=== PATIENT | male | born 1970 | race African-American/Black ===

== ENCOUNTER 2019-10-24 10:00 | Emergency (ER) | payer SELFPAY ==
[~2019-10-24] VITALS: Ht 182.9 cm; Wt 73.0 kg
[2019-10-24] MEDS ORDERED: insulin (10:10)
[2019-10-24] MEDS ORDERED: METF-414 PO (10:10)
[2019-10-24] MEDS ORDERED: LIDOCAINE 1%/EPI 1:100,000 10 ML VIAL IJ ONE (10:30)
[2019-10-24] MEDS ORDERED: IBUPROFEN 600MG TABLET PO ONE (10:30)
[2019-10-24] MEDS ORDERED: LIDOCAINE HCL/EPINEPHRINE 1%-EPI 1:100,000 20 ML VIAL INFIL NR (11:15)
[2019-10-24] MEDS ORDERED: CEFTRIAXONE SODIUM 1 G/VIAL IM ONE (12:00)
[2019-10-24] MEDS ORDERED: SULFAMETHOXAZOLE/TRIMETHOPRIM 800/160MG TABLET PO ONE (12:00)
[2019-10-24 12:38] VITALS: BP 136/84
== END 2019-10-24 12:39 | disposition home or self-care (01) ==
LOC: ER 10:00
DX: N45.4 Abscess of epididymis or testis (principal); N43.3 Hydrocele, unspecified; R03.0 Elevated blood-pressure reading, without diagnosis of hypertension; E11.9 Type 2 diabetes mellitus without complications; Z79.4 Long term (current) use of insulin
CPT/HCPCS: 54700; 76870; 82962; 93976; 96372; 99284; J0696; J3490